=== PATIENT | female | born 1990 | race Caucasian/White ===

== ENCOUNTER → 2019-04-07 08:22 | Outpatient (CLI) | payer BC ==
--- NOTE | 2019-04-13 14:07 | ST ---
PATIENT:SANNA AYALA MEDICAL RECORD: [id number] SEX: F LOCATION:[facility] ORDER #: ADMISSION DATE: 04/07/19 AGE OF PATIENT: 28 REFERRING PHYSICIAN: INTERPRETING PHYSICIAN: ART CERVANTES MD DATE OF SERVICE: 04/07/2019 INDICATION: Chest pain, syncope. TECHNIQUE: The patient was exercised on standard Tamir protocol for 7 minutes 30 seconds achieving greater than 85% max target heart rate response with 32 mCi of sestamibi injected at peak stress, 10 mCi previously for rest images. FINDINGS: Gated SPECT reveals preserved ejection fraction at 63% with good wall motion and thickening and brightening throughout all segments. SPECT imaging Cardiolite was used as myocardial perfusion agent. There is a perfusion defect at rest that is anteroapically. This improves with stress and normalizes. The remaining segments have homogeneous uptake at rest and stress. There is no evidence of reversible ischemia. OVERALL IMPRESSION: This is a minimally abnormal nuclear stress test only showing a fixed perfusion defect at rest that improves with stress, most likely artifactual anteroapically from breast attenuation. Otherwise, there is no evidence of reversible ischemia. Ejection fraction is preserved at 63%. Continue medical management of the cardiac risk factors. TRANSINT:[id number] Voice Confirmation ID: [id number] DOCUMENT ID: [id number] ART CERVANTES MD at 1407 CC: BRITNI WADDELL [id number] DICTATION DATE: 04/08/19 1455 PATIENT SERVICES COORDINATOR: 04/09/19 0807 [facility] CLI 04/07/19 [place] [id number]
== END | disposition home or self-care (01) ==
LOC: D.HCCARDIO 08:22
PROVIDERS: ATTEND Internal Medicine Interventional Cardiology
DX: R07.9 Chest pain, unspecified (principal)